=== PATIENT | male | born 1995 | race Caucasian/White ===

== ENCOUNTER → 2022-06-14 | Outpatient (CLI) | payer OTHER ==
[2022-06-14 10:10] LABS: ALBUMIN 4.6 g/dL (3.5-5.0); POTASSIUM 4.1 mmol/L (3.5-5.1)
[2022-06-14 10:11] LABS: CALCIUM 9.7 mg/dL (8.3-10.5)
[2022-06-14 10:13] LABS: TOTAL PROTEIN 7.9 g/dL (6.4-8.3)
[2022-06-14 10:14] LABS: TOTAL BILIRUBIN 0.9 mg/dL (0.2-1.2)
[2022-06-14 10:21] LABS: HEMATOCRIT 46.6 % (42.0-52.0); HEMOGLOBIN 15.4 g/dL (13.5-18.0); MEAN PLATELET VOLUME 9.7 fl (7.4-10.4); RED BLOOD COUNT 5.33 M/mm3 (4.20-5.60); RED CELL DISTRIBUTION WIDTH 12.9 % (11.5-14.5); WHITE BLOOD COUNT 4.6 K/mm3 (4.8-10.8)
[2022-06-14 10:23] LABS: URINE APPEARANCE CLEAR; URINE COLOR YELLOW
[2022-06-14 10:24] LABS: URINE BILIRUBIN NEGATIVE (NEGATIVE); URINE BLOOD NEGATIVE (NEGATIVE); URINE GLUCOSE NEGATIVE (NEGATIVE); URINE KETONE NEGATIVE (NEGATIVE); URINE LEUKOCYTE ESTERASE NEGATIVE (NEGATIVE); URINE NITRATE NEGATIVE (NEGATIVE); URINE PROTEIN(semi-quant) NEGATIVE (NEGATIVE); URINE UROBILINOGEN NORMAL (NORMAL); URINE WBC 0-1 /hpf (0-3)
== END ==
LOC: LAB 09:42
PROVIDERS: Family Medicine
DX: E04.1 Nontoxic single thyroid nodule (principal); F90.9 Attention-deficit hyperactivity disorder, unspecified type; R53.83 Other fatigue; G47.9 Sleep disorder, unspecified; F41.8 Other specified anxiety disorders

== ENCOUNTER → 2022-10-29 | Outpatient (CLI) | payer OTHER ==
[2022-10-29 10:05] LABS: BASO # 0.04 K/mm3 (0.02-0.10); EOS # 0.29 K/mm3 (0.04-0.40); EOS % 5.3 % (0.0-4.0); HEMOGLOBIN 16.3 g/dL (13.5-18.0); LYMPH# 1.37 K/mm3 (1.50-4.00); MEAN CELL VOLUME 88 fl (78-100); MEAN CORPUSCULAR HEMOGLOBIN 29 pg (27-31); MEAN CORPUSCULAR HGB CONC 33 g/dL (33-37); MEAN PLATELET VOLUME 9.2 fl (7.4-10.4); MONO # 0.32 K/mm3 (0.20-0.80); NEU # 3.42 K/mm3 (1.40-6.50); PLATELET COUNT 224 K/mm3 (130-400); RED CELL DISTRIBUTION WIDTH 13.2 % (11.5-14.5); WHITE BLOOD COUNT 5.4 K/mm3 (4.8-10.8)
[2022-10-29 10:08] LABS: ALBUMIN 4.4 g/dL (3.5-5.0)
[2022-10-29 10:09] LABS: POTASSIUM 4.6 mmol/L (3.5-5.1)
[2022-10-29 10:10] LABS: CALCIUM 9.8 mg/dL (8.3-10.5)
[2022-10-29 10:11] LABS: TOTAL PROTEIN 7.8 g/dL (6.4-8.3)
[2022-10-29 10:13] LABS: TOTAL BILIRUBIN 0.9 mg/dL (0.2-1.2)
== END ==
LOC: LAB 09:40
PROVIDERS: Nurse Practitioner
DX: J02.9 Acute pharyngitis, unspecified (principal); R68.89 Other general symptoms and signs; R53.83 Other fatigue; Z20.828 Contact with and (suspected) exposure to other viral communicable diseases